=== PATIENT | male | born 1970 | race Caucasian/White ===

== ENCOUNTER 2022-07-23 08:24 | Outpatient (CLI) | payer OTHER, SELFPAY ==
--- NOTE | 2022-08-12 17:15 | WPDSLEEPSTUD ---
Sleep Study Date of Study: 07/23/22 Ordering Provider: Francesca Campuzano MD Interpreting Physician: Amy Barnes DO Sleep Study Type: Polysomnogram Height: 1.75 m Weight: 86.183 kg Body Mass Index: 28.0 Neck Circumference (inches): 16 [place]: 12 Reason for Sleep Study Daytime hypersomnia Sleep History Patient is a 52 yo M who presents for an in-lab sleep study due to feeling tired during the day.He rarely awakens from sleep short of breath. He occasionally awakens at night with heartburn, belching or cough.? He constantly snores. He frequently has trouble sleeping when he has a cold. He rarely suddenly wakes up gasping for breath during the night. He never sweats excessively at night. He occasionally falls asleep during the day. He occasionally falls asleep involuntarily and never falls asleep while driving. He frequently experiences loss of muscle tone with strong emotion. He occasionally has trouble at work because of sleepiness. He rarely feels paralyzed on waking or falling asleep. He occasionally experiences vivid dreams upon waking or falling asleep. He does not feel afraid of going to sleep. He rarely has nightmares. He occasionally recalls his dreams. He constantly has thoughts racing through his mind. He rarely feels sad or depressed. He rarely feels anxiety or worry about things. He frequently notices parts of his body jerk. He occasionally kicks during the night. He occasionally feels crawling or aching feelings in his legs. He occasionally feels leg pain at night. He never grinds his teeth during sleep and never has morning jaw pain. He frequently feels bothered by pain during the day and is occasionally awakened by pain during the night. He constantly wakes up feeling stiff, sore, and achy in the morning with pain in his neck, spine, or joints.? Normal bedtime is between 10 to 11 pm on the weekdays and 11 pm and 12am on the weekends, taking up to a couple hours to fall asleep. He typically gets about 5 to 6 hours of sleep per night. His wake up time is around 7 am on the weekdays and same on the weekends. He typically wakes up around 2 to 3 times per night, sometimes awake for a few minutes and sometimes awake for hours. He watches TV before falling asleep. He sometimes takes naps in the afternoon or evening.? He describes a constant ear ringing, varying pitch and volume, using TV or music to try and mask it because total silence is bothersome. Habits:? He has a history of using chewing tobacco and working on cessation. Drinks 2 to 3 caffeinated beverages per day. No alcohol or recreational substances. [facility] Past Medical History Medical History Acute pain due to trauma Acute shoulder pain due to trauma Arthralgia BPH (benign prostatic hyperplasia) Depression Fracture of left clavicle nondisplaced Hypercholesterolemia Hyperlipidemia LDL goal <100 Hypertension, benign Longitudinal nail ridge Nicotine dependence Non-healing skin lesion ENA (obstructive sleep apnea) Pneumothorax on left Psoriasis Ridged nails Sleep apnea Tobacco dependence due to chewing tobacco Family History Family History Sibling Kidney malignancy Clear cell renal cell carcinoma brother Social History Social History Smoking status: Former smoker Tobacco type: cigarettes and smokeless tobacco Second hand tobacco smoke exposure: No Alcohol intake: former Substance use: never Substance use type: does not use Lack of Transportation: No Lack of Food: Never True Current Housing: I Have Housing Concerned About Future Housing: No Difficulty Paying Gas/Electric Bills: No Difficulty Paying for Meds: No Currently Unemployed: No Education: Master's Degree or Higher Difficulty w/ Childcare or Family Care: No Living arrangements: with family Gender toni
[2022-08-12 17:20] VITALS: BMI 28.0
== END 2022-07-24 05:42 | disposition home or self-care (01) ==
LOC: ANHCSM 08:27
PROVIDERS: PCP Family Medicine; Visit Provider Family Medicine
DX: G47.33 Obstructive sleep apnea (adult) (pediatric) (principal)
CPT/HCPCS: 95810